=== PATIENT | female | born 1985 | race Caucasian/White ===

== ENCOUNTER 2016-11-22 11:33 | Emergency (ER) | payer BC ==
[2016-11-22 12:05] VITALS: BP 118/71
[2016-11-22] MEDS ORDERED: NAPROXEN 500 MG TABLET PO ONE (12:45)
[2016-11-22 13:13] LABS: BASO # 0.1 x10^3/uL (0.0-0.2); BASO % 1 % (0-3); EOS % 6 % (0-3); HEMATOCRIT 43.1 % (36.0-47.0); HEMOGLOBIN 14.7 g/dL (12.0-15.5); LYMPH # 2.9 x10^3/uL (1.0-4.8); LYMPH % 30 % (24-48); MEAN CORPUSCULAR HEMOGLOBIN 32 pg (25-35); MEAN CORPUSCULAR HGB CONC 34 g/dL (31-37); MEAN CORPUSCULAR VOLUME 95 fL (79-100); MONO % 6 % (0-9); NEUT % 58 % (31-73); PLATELET COUNT 269 x10^3/uL (140-400); RED BLOOD COUNT 4.55 x10^6/uL (3.50-5.40); RED CELL DISTRIBUTION WIDTH 13.1 % (11.5-14.5); WHITE BLOOD COUNT 9.6 x10^3/uL (4.0-11.0)
--- NOTE | 2016-11-22 13:15 | ED.ADGEN ---
Past Medical History Past Medical History: No Pertinent History Past Surgical History: Tonsillectomy, Tubal ligation Additional Past Surgical Histo: hernia repair Additional Information: 10/24 ppd Alcohol Use: Occasionally Drug Use: Marijuana Adult General HPI HPI Patient is a 31 year old woman, history of a tubal ligation, who presents to the emergency department with complaint of swelling and pain behind her right ear. Patient states that she first noted "a bump" yesterday, and the morning that was tender to touch, states it did become larger this morning. She denies any fevers, chills, nausea, vomiting, diarrhea, abdominal pain, GI complaints, weakness, numbness, tingling, ear pain, upper respiratory or lower respiratory type symptoms, any dental or jaw pain. No injuries. She is not taking any medication prior to coming to the ED. Daily tobacco use, no drugs or alcohol. No other areas of swelling or other complaints. No recent travel or exposures. Review of Systems Review of Systems Constitutional: Denies fever or chills. [] Eyes: Denies change in visual acuity. [] HENT: Denies nasal congestion or sore throat. [] Respiratory: Denies cough or shortness of breath. [] Cardiovascular: Denies chest pain or edema. [] GI: Denies abdominal pain, nausea, vomiting, bloody stools or diarrhea. [] : Denies dysuria. [] Musculoskeletal: Denies back pain or joint pain. [] "Bump" behind the right ear. Integument: Denies rash. [] Neurologic: Denies headache, focal weakness or sensory changes. [] Endocrine: Denies polyuria or polydipsia. [] Lymphatic: Denies swollen glands. [] Psychiatric: Denies depression or anxiety. [] Current Medications Current Medications Current Medications Medications (Trade) Dose Ordered Sig/Edilson Start Time Stop Time Status Last Admin Dose Admin Naproxen (Naprosyn) 500 mg 1X ONCE 11/22/16 12:45 11/22/16 12:47 DC 11/22/16 13:02 500 MG Allergies Allergies Allergies Coded Allergies Type Severity Reaction Last Updated Verified No Known Drug Allergies 04/06/16 No Physical Exam Physical Exam Constitutional: Well developed, well nourished, no acute distress, non-toxic appearance. [] HENT: Normocephalic, atraumatic, bilateral external ears normal, oropharynx moist, no oral exudates, nose normal. Patient with a 1.5 cm, minimally mobile palpable lymph node posterior to the right ear. No surrounding areas of irritation, infection, no pain with movement of tragus, no mastoid tenderness, internal ear canal is normal, no evidence of dental abnormalities, no sinus tenderness, or other source of infections or abnormalities identified during examination of the patient's ENT. Eyes: PERRLA, EOMI, conjunctiva normal, no discharge. [] Neck: Normal range of motion, no tenderness, supple, no stridor. [] Cardiovascular:Heart rate regular rhythm, no murmur [] Lungs & Thorax: Bilateral breath sounds clear to auscultation [] Abdomen: Bowel sounds normal, soft, no tenderness, no masses, no pulsatile masses. [] Skin: Warm, dry, no erythema, no rash. [] Back: No tenderness, no CVA tenderness. [] Extremities: No tenderness, no cyanosis, no clubbing, ROM intact, no edema. [] Neurologic: Alert and oriented X 3, normal motor function, normal sensory function, no focal deficits noted. [] Psychologic: Affect normal, judgement normal, mood normal. [] Current Patient Data Vital Signs Vital Signs Date Time Temp Pulse Resp B/P Pulse Ox O2 Delivery O2 Flow Rate FiO2 11/22/16 12:05 98.0 78 18 97 Room Air 98.0 Lab Values Laboratory Tests Test 11/22/16 13:03 White Blood Count 9.6x10^3/uL (4.0-11.0) Red Blood Count 4.55x10^6/uL (3.50-5.40) Hemoglobin 14.7g/dL (12.0-15.5) Hematocrit 43.1% (36.0-47.0) Mean Corpuscular Volume 95fL (79-100) Mean Corpuscular Hemoglobin 32pg (25-35) Mean Corpuscular Hemoglobin Concent 34g/dL (31-37) Red Cell Distribution Width 13.1% (11.5-14.5) Platelet Count 269x10^3/uL (140-400) Neutrophils (%) (Auto) 58% (31-73) Lymphocytes (%) (Auto) 30% (24-48) Monocytes (%) (Auto) 6% (0-9) Eosinophils (%) (Auto) 6% (0-3) H Basophils (%) (Auto) 1% (0-3) Neutrophils # (Auto) 5.6x10^3uL (1.8-7.7) Lymphocytes # (Auto) 2.9x10^3/uL (1.0-4.8) Monocytes # (Auto) 0.6x10^3/uL (0.0-1.1) Eosinophils # (Auto) 0.5x10^3/uL (0.0-0.7) Basophils # (Auto) 0.1x10^3/uL (0.0-0.2) Sodium Level 140mmol/L (136-145) Potassium Level 4.3mmol/L (3.5-5.1) Chloride Level 107mmol/L (98-107) Carbon Dioxide Level 26mmol/L (21-32) Anion Gap 7 (6-14) Blood Urea Nitrogen 11mg/dL (7-20) Creatinine 0.8mg/dL (0.6-1.0) Estimated GFR (Cockcroft-Gault) 83.7 BUN/Creatinine Ratio 14 (6-20) Glucose Level 96mg/dL (70-99) Calcium Level 8.7mg/dL (8.5-10.1) Total Bilirubin 0.4mg/dL (0.2-1.0) Aspartate Amino Transferase (AST) 16U/L (15-37) Alanine Aminotransferase (ALT) 23U/L (14-59) Alkaline Phosphatase 79U/L (46-116) Total Protein 7.5g/dL (6.4-8.2) Albumin 3.7g/dL (3.4-5.0) Albumin/Globulin Ratio 1.0 (1.0-1.7) Laboratory Tests 11/22/16 13:03 Laboratory Tests 11/22/16 13:03 EKG EKG Not indicated. [] Radiology/Procedures Radiology/Procedures Not indicated. [] Course & Med Decision Making Course & Med Decision Making Pertinent Labs and Imaging studies reviewed. (See chart for details) Patient with the appearance of a single enlarged minimally mobile postauricular lymph node. No other lymphadenopathy identified, no other signs of infection or potential source identified during examination, patient denies any concerning historical findings aside from tobacco use. I did discuss with patient that this is likely a reactive lymph node could be related to a viral infection, however due to concerns that could be a more insidious cause, including cancer, she is agreeable to receiving basic laboratory studies in the ED, and will follow-up with her primary care provider Dr. Lin promptly for additional evaluation. Patient's A studies not reveal any evidence of acutely concerning findings, patient was discharged home with instructions and plan as stated, along with smoking cessation instructions, to follow-up promptly with her primary care provider for additional evaluation, and to return to the ED for concerning symptoms if new or concerning symptoms as discussed develop. Dragon Disclaimer Dragon Disclaimer This electronic medical record was generated, in whole or in part, using a voice recognition dictation system. Departure Impression: Primary Impression: Enlarged lymph node Disposition: HOME, SELF-CARE Condition: IMPROVED Scripts Naproxen 250 Mg [id number] Mg PO BID PRN PAIN #10 Prov:MAGGIE VELA DO 11/22/16 MAGGIE VELA DO Nov 22, 2016 13:15
[2016-11-22] MEDS ORDERED: NAPR250T2 PO (13:38)
[2016-11-22 14:03] LABS: CALCIUM 8.7 mg/dL (8.5-10.1); CREATININE 0.8 mg/dL (0.6-1.0); GFR 83.7; POTASSIUM 4.3 mmol/L (3.5-5.1)
[2016-11-22 14:09] LABS: ALBUMIN 3.7 g/dL (3.4-5.0); TOTAL BILIRUBIN 0.4 mg/dL (0.2-1.0); TOTAL PROTEIN 7.5 g/dL (6.4-8.2)
== END 2016-11-22 15:13 | disposition home or self-care (01) ==
LOC: ER 11:33
DX: R59.9 Enlarged lymph nodes, unspecified (principal); F12.10 Cannabis abuse, uncomplicated; F17.200 Nicotine dependence, unspecified, uncomplicated
CPT/HCPCS: 36415; 80053; 85027; 99284

== ENCOUNTER 2017-01-27 09:49 | Emergency (ER) | payer SELFPAY ==
[~2017-01-27] VITALS: Ht 149.9 cm; Wt 72.6 kg
[~2017-01-27 09:49] MED LIST: NAPR250T2 PO
--- NOTE | 2017-01-27 10:25 | PHYS DOC ---
Past Medical History Past Medical History: No Pertinent History Past Surgical History: Tonsillectomy, Tubal ligation Additional Past Surgical Histo: hernia repair Alcohol Use: Occasionally Drug Use: Marijuana Adult General Chief Complaint Chief Complaint: PELVIC PAIN HPI HPI Patient is a 31 year old female presents emergency Department complaining of right-sided pelvic pain that is been ongoing for the past 5 days. Patient reports a history of ovarian cyst. Patient reports she had a tubal ligation performed approximately 3 years ago. She states that she's had no complications since that time. Patient denies treatment for STDs or concerns for STDs at this time. She denies antibiotic use over the past 90 days. Patient states that she has been having some dysuria for the past 3-4 days. She denies hematuria. She denies fevers, chills or flank pain. Other than right-sided pelvic pain, she does deny vaginal bleeding or unusual vaginal discharge. She states that she just finished her menstrual cycle 2 days ago. Review of Systems Review of Systems Constitutional: Denies fever or chills [] Eyes: Denies change in visual acuity, redness, or eye pain [] HENT: Denies nasal congestion or sore throat [] Respiratory: Denies cough or shortness of breath [] Cardiovascular: No additional information not addressed in HPI [] GI: Denies abdominal pain, nausea, vomiting, bloody stools or diarrhea [] : Denies dysuria or hematuria [] Musculoskeletal: Denies back pain or joint pain [] Integument: Denies rash or skin lesions [] Neurologic: Denies headache, focal weakness or sensory changes [] Endocrine: Denies polyuria or polydipsia [] Current Medications Current Medications Current Medications Medications (Trade) Dose Ordered Sig/[facility] Start Time Stop Time Status Last Admin Dose Admin Ketorolac Tromethamine (Toradol Im) 60 mg 1X ONCE 01/27/17 10:30 01/27/17 10:31 DC 01/27/17 10:30 60 MG Allergies Allergies Allergies Coded Allergies Type Severity Reaction Last Updated Verified No Known Drug Allergies 01/27/17 No Physical Exam Physical Exam Constitutional: Well developed, well nourished, no acute distress, non-toxic appearance. [] HENT: Normocephalic, atraumatic, bilateral external ears normal, oropharynx moist, no oral exudates, nose normal. [] Eyes: PERRLA, EOMI, conjunctiva normal, no discharge. [] Neck: Normal range of motion, no tenderness, supple, no stridor. [] Cardiovascular:Heart rate regular rhythm, no murmur [] Lungs & Thorax: Bilateral breath sounds clear to auscultation [] Abdomen: Abdomen soft and nondistended. There are normoactive bowel sounds in all 4 quadrants. There is no palpable defect to the abdominal wall or pulsatile masses. There is no tenderness to palpation above the pelvic brim, specifically the right lower quadrant and McBurney's point. There is no rebound or guarding. Pelvic exam was performed with MICHELA Yeager, in the room functioning as grain manager and resident assistant cna: There were no lesions to the external genitalia. There is a scant amount of old blood in the vaginal vault. Cervix is normal in appearance. External os is closed. There is no tissue or debris other than old dried blood in the vaginal vault. There is no cervical motion tenderness. There was no left adnexal tenderness. There was mild uterine and right adnexal tenderness. Patient had no complaints of tenderness to palpation in the right lower quadrant during pelvic exam. Skin: Warm, dry, no erythema, no rash. [] Back: No tenderness, no CVA tenderness. [] Extremities: No tenderness, no cyanosis, no clubbing, ROM intact, no edema. [] Neurologic: Alert and oriented X 3, normal motor function, normal sensory function, no focal deficits noted. [] Psychologic: Affect normal, judgement normal, mood normal. [] Current Patient Data Vital Signs Vital Signs Date Time Temp Pulse Resp B/P Pulse Ox O2 Delivery O2 Flow Rate FiO2 01/27/17 12:16 76 18 111/71 97 Room Air 01/27/17 09:52 97.7 97.7 Lab Values Laboratory Tests Test 01/27/17 10:05 Urine Collection Type Unknown Urine Color Yellow Urine Clarity Clear Urine pH 6.0 Urine Specific [place] 1.015 Urine Protein Negativemg/dL (NEG-TRACE) Urine Glucose (UA) Negativemg/dL (NEG) Urine Ketones (Stick) Negativemg/dL (NEG) Urine Blood Small (NEG) Urine Nitrite Negative (NEG) Urine Bilirubin Negative (NEG) Urine Urobilinogen Dipstick 0.2mg/dL (0.2 mg/dL) Urine Leukocyte Esterase Large (NEG) Urine RBC 1-2/HPF (0-2) Urine WBC 5-10/HPF (0-4) Urine Squamous Epithelial Cells Few/LPF Urine Bacteria 0/HPF (0-FEW) Microbiology 01/27/17 Wet Prep - Final, Complete Microbiology 01/27/17 Wet Prep - Final, Complete EKG EKG [] Radiology/Procedures Radiology/Procedures [facility] [address] [place] [address] IMAGING REPORT Signed PATIENT: JENISE RIVERA ACCOUNT: [id number] : 1985 LOCATION: ER AGE: 31 SEX: F EXAM STATUS: REG ER ORD. PHYSICIAN: VIRGINIA LINO REASON: RIGHT adnexal tenderness PROCEDURE: PELVIS COMPLETE Transabdominal and endovaginal pelvic ultrasound History: Right adnexal tenderness. Comparison: None. Technique: Transabdominal imaging was performed to evaluate optimally the uterine fundus. Endovaginal imaging was performed to evaluate optimally the endometrial stripe and lower uterine segment. Findings: Transabdominal imaging: The uterus measures 9.7 cm in length. Uterus has an unremarkable appearance. The endometrial stripe measures 5 mm, within normal limits. Right ovary measures 3.4 x 2.2 x 3.1 cm and is unremarkable. Left ovary measures 2.8 x 2.0 x 2.2 cm and is unremarkable. No adnexal masses are seen. Both ovaries demonstrate normal vascular flow upon Doppler interrogation and are without evidence of torsion. Endovaginal imaging: The uterus measures 10.1 cm in length. Uterus has an unremarkable appearance. The endometrial stripe measures 9 mm, within normal limits. Right ovary measures 2.8 x 2.2 x 2.8 cm and demonstrates a few small follicles. Left ovary is not visualized with endovaginal imaging. Right ovary demonstrates normal vascular flow upon Doppler interrogation and is without evidence of torsion. Impression: 1. Unremarkable pelvic ultrasound. Course & Med Decision Making Course & Med Decision Making Patient states that she's been taking another person's hydrocodone to help the pain. She freely admits to THC use as well. test is reported to me as negative. 60 mg of Toradol IM has been ordered. 1150: Patient's abdomen was reexamined by me. She continues to have no tenderness to palpation above the pelvic brim. She has no pain at McBurney's point, no periumbilical pain or right upper quadrant. Patient states she otherwise feels comfortable at this time. Dragon Disclaimer Dragon Disclaimer This electronic medical record was generated, in whole or in part, using a voice recognition dictation system. Departure Departure Impression: Primary Impression: UTI (urinary tract infection) Additional Impression: Pelvic pain Disposition: HOME, SELF-CARE Condition: GOOD Referrals: DAWSON MARTIN MD (PCP) Patient Instructions: Pelvic Pain, Female, [id number], Urinary Tract Infection, [id number] Additional Instructions: 1. Review the discharge instructions provided for self-care and reasons to return to the emergency department. Have low tolerance for increased pain in the right pelvic area, specifically begins to migrate upward into the abdomen. 2. Take the medication as prescribed. 3. Follow-up with your primary care doctor next week for reevaluation. Scripts Oxycodone/Apap 5-325 (Percocet 5-325 Mg Tablet)1 Each Tablet1 Tab PO PRN Q6HRS PRN PAIN #10 TAB Ref 0 Prov:VIRGINIA LINO 01/27/17 Phenazopyridine Hcl (Pyridium)200 Mg [id number] Mg PO TID #6 TAB Prov:VIRGINIA LINO 01/27/17 Sulfamethoxazole/Trimethoprim (Bactrim 400-80 Mg Tablet)1 Each Tablet1 Each PO BID #10 Prov:VIRGINIA LINO 01/27/17 Problem Qualifiers VIRGINIA LINO Jan 27, 2017 10:24
[2017-01-27 10:27] LABS: BILIRUBIN,URINE NEGATIVE (NEG); GLUCOSE,URINE NEGATIVE (NEG); NITRITE,URINE NEGATIVE (NEG); PROTEIN,URINE NEGATIVE (NEG-TRACE); UROBILINOGEN,URINE 0.2 mg/dL (0.2 mg/dL)
[2017-01-27] MEDS ORDERED: KETOROLAC TROMETHAMINE 60 MG/2 ML INJ. IM ONE (10:30)
[2017-01-27 10:40] LABS: BACTERIA,URINE 0 /HPF (0-FEW); SQUAMOUS EPITHELIAL CELL,UR FEW /LPF
--- NOTE | 2017-01-27 11:38 | RAD ---
Transabdominal and endovaginal pelvic ultrasound History: Right adnexal tenderness. Comparison: None. Technique: Transabdominal imaging was performed to evaluate optimally the uterine fundus. Endovaginal imaging was performed to evaluate optimally the endometrial stripe and lower uterine segment. Findings: Transabdominal imaging: The uterus measures 9.7 cm in length. Uterus has an unremarkable appearance. The endometrial stripe measures 5 mm, within normal limits. Right ovary measures 3.4 x 2.2 x 3.1 cm and is unremarkable. Left ovary measures 2.8 x 2.0 x 2.2 cm and is unremarkable. No adnexal masses are seen. Both ovaries demonstrate normal vascular flow upon Doppler interrogation and are without evidence of torsion. Endovaginal imaging: The uterus measures 10.1 cm in length. Uterus has an unremarkable appearance. The endometrial stripe measures 9 mm, within normal limits. Right ovary measures 2.8 x 2.2 x 2.8 cm and demonstrates a few small follicles. Left ovary is not visualized with endovaginal imaging. Right ovary demonstrates normal vascular flow upon Doppler interrogation and is without evidence of torsion. Impression: 1. Unremarkable pelvic ultrasound.
[2017-01-27] MEDS ORDERED: OXYC-323 PO (12:08)
[2017-01-27] MEDS ORDERED: PHEN-318 PO (12:08)
[2017-01-27] MEDS ORDERED: SULF1TAB23 PO (12:08)
[2017-01-27 12:16] VITALS: BP 111/71
== END 2017-01-27 12:21 | disposition home or self-care (01) ==
LOC: ER 09:49
DX: N39.0 Urinary tract infection, site not specified (principal); N83.209 Unspecified ovarian cyst, unspecified side; F12.10 Cannabis abuse, uncomplicated; Z98.51 Tubal ligation status
CPT/HCPCS: 76856; 81001; 87086; 96372; 99285; J1885; Q0111; 81025

== ENCOUNTER 2018-01-04 11:10 | Emergency (ER) | payer SELFPAY ==
[2018-01-04 11:28] LABS: URINE HCG POC HCG NEGATIVE (Negative)
[2018-01-04 11:37] LABS: POC GLUCOSE 122 mg/dL (70-99)
[2018-01-04 12:09] LABS: BILIRUBIN,URINE NEGATIVE (NEG); CLARITY,URINE CLEAR; COLOR,URINE YELLOW; GLUCOSE,URINE NEGATIVE (NEG); NITRITE,URINE NEGATIVE (NEG); PH,URINE 5.5; PROTEIN,URINE NEGATIVE (NEG-TRACE); UROBILINOGEN,URINE 0.2 mg/dL (0.2 mg/dL)
[2018-01-04] MEDS: IV NORMAL SALINE 1000ML BAG 1,000 ML IV (12:25)
[2018-01-04 12:29] LABS: ADD MAN DIFF? NO
[2018-01-04 12:32] LABS: BASO % 1 % (0-3); EOS # 0.3 x10^3/uL (0.0-0.7); EOS % 3 % (0-3); HEMATOCRIT 40.8 % (36.0-47.0); HEMOGLOBIN 14.1 g/dL (12.0-15.5); LYMPH # 1.7 x10^3/uL (1.0-4.8); LYMPH % 19 % (24-48); MEAN CORPUSCULAR HEMOGLOBIN 33 pg (25-35); MEAN CORPUSCULAR HGB CONC 35 g/dL (31-37); MEAN CORPUSCULAR VOLUME 96 fL (79-100); MONO # 0.5 x10^3/uL (0.0-1.1); MONO % 6 % (0-9); NEUT # 6.5 x10^3uL (1.8-7.7); NEUT % 72 % (31-73); PLATELET COUNT 249 x10^3/uL (140-400); RED BLOOD COUNT 4.24 x10^6/uL (3.50-5.40); RED CELL DISTRIBUTION WIDTH 13.1 % (11.5-14.5)
[2018-01-04 12:37] LABS: AMORPHOUS SEDIMENT,UR PRESENT /HPF; BACTERIA,URINE 0 /HPF (0-FEW); RBC,URINE 0 /HPF (0-2); SQUAMOUS EPITHELIAL CELL,UR MOD /LPF
[2018-01-04] MEDS: IBUPROFEN 600 MG TABLET. PO (12:40)
[2018-01-04 12:43] LABS: ANION GAP 4 (6-14); BLOOD UREA NITROGEN 12 mg/dL (7-20); BUN/CREATININE RATIO 15 (6-20); CALCIUM 8.7 mg/dL (8.5-10.1); CARBON DIOXIDE 26 mmol/L (21-32); CHLORIDE 106 mmol/L (98-107); CREATININE 0.8 mg/dL (0.6-1.0); GFR 83.1; GLUCOSE 92 mg/dL (70-99); SODIUM 136 mmol/L (136-145)
[2018-01-04 12:49] LABS: ALBUMIN 3.3 g/dL (3.4-5.0); ALBUMIN/GLOBULIN RATIO 0.9 (1.0-1.7); ALK PHOS 74 U/L (46-116); ALT (SGPT) 28 U/L (14-59); AST (SGOT) 16 U/L (15-37)
[2018-01-04 12:52] LABS: TROPONINI < 0.017 ng/mL (0.000-0.055)
[2018-01-04 12:54] LABS: NT-PRO BNP 91 pg/mL (0-124)
[2018-01-04 13:03] LABS: TOTAL BILIRUBIN < 0.1 mg/dL (0.2-1.0)
== END 2018-01-04 13:57 | disposition home or self-care (01) ==
LOC: ER 11:10
DX: R55 Syncope and collapse (principal); R09.81 Nasal congestion; R05 Cough; J34.89 Other specified disorders of nose and nasal sinuses; F12.10 Cannabis abuse, uncomplicated; E66.9 Obesity, unspecified; Z68.35 Body mass index [BMI] 35.0-35.9, adult
CPT/HCPCS: 36415; 80053; 81001; 81025; 82962; 83880; 84484; 85025; 87086; 93005; 96360; 99285-25; J7030

== ENCOUNTER 2018-05-20 13:59 | Emergency (ER) | payer SELFPAY ==
[2018-05-20 14:36] LABS: BILIRUBIN,URINE NEGATIVE (NEG); COLOR,URINE YELLOW; GLUCOSE,URINE NEGATIVE (NEG); NITRITE,URINE NEGATIVE (NEG); PROTEIN,URINE NEGATIVE (NEG-TRACE); UROBILINOGEN,URINE 0.2 mg/dL (0.2 mg/dL)
[2018-05-20 14:40] LABS: CLARITY,URINE HAZY
[2018-05-20 14:45] LABS: BACTERIA,URINE MODERATE /HPF (0-FEW); RBC,URINE OCC /HPF (0-2); SQUAMOUS EPITHELIAL CELL,UR MANY /LPF; TRICHOMONAS,URINE PRESENT
[2018-05-20] MEDS: AZITHROMYCIN 250 MG TABLET. PO (15:40)
[2018-05-20] MEDS: cefTRIAXone IM 250 MG VIAL IM (15:47)
[2018-05-22 14:33] LABS: CHLAMYDIA PROBE Negative (Negative); GC PROBE Negative (Negative)
== END 2018-05-20 16:04 | disposition home or self-care (01) ==
LOC: ER 16:04
DX: N39.0 Urinary tract infection, site not specified (principal); A59.01 Trichomonal vulvovaginitis; N76.0 Acute vaginitis; B96.89 Other specified bacterial agents as the cause of diseases classified elsewhere; Z90.89 Acquired absence of other organs; Z98.51 Tubal ligation status
CPT/HCPCS: 81001; 87086; 87491; 87591; 96372; 99284; J0696; Q0111; Q0144

== ENCOUNTER 2018-08-22 15:02 | Emergency (ER) | payer SELFPAY ==
[~2018-08-22] VITALS: Ht 149.9 cm; Wt 68.0 kg
[~2018-08-22 15:02] MED LIST changes: +CIPR500T PO; +METR500T PO; -NAPR250T2 PO; +NAPR250T6 PO; +OXYC-323 PO; +PHEN-318 PO; +SULF1TAB23 PO
[2018-08-22 15:12] VITALS: BP 155/92
[2018-08-22] MEDS ORDERED: AMOX875T PO (15:47)
[2018-08-22] MEDS ORDERED: OFLO5DRO7 EACH EAR (15:47)
[2018-08-22] MEDS ORDERED: TRAM50TA PO (15:47)
--- NOTE | 2018-08-22 15:47 | PHYS DOC ---
Past Medical History Past Medical History: No Pertinent History Past Surgical History: Tonsillectomy, Tubal ligation Additional Past Surgical Histo: hernia repair Alcohol Use: Occasionally Drug Use: Marijuana Adult General Chief Complaint Chief Complaint: FACE PAIN [facility] HPI Patient is a 33 year old female with no significant medical history who presents today complaining of 10 out of 10 left facial pain that has been going on for one week. Patient states the pain radiates from the left tooth into the left ear and worse in the left ear. Patient denies any hearing loss. She states she has a bad tooth but does not have a dentist. She states she does not have dental insurance to see a dentist. Denies any fever or trismus. Review of Systems Review of Systems Constitutional: Denies fever or chills [] Eyes: Denies change in visual acuity, redness, or eye pain [] HENT: Reports left-sided facial pain. Denies nasal congestion or sore throat [] Respiratory: Denies cough or shortness of breath [] Cardiovascular: No additional information not addressed in HPI [] GI: Denies abdominal pain, nausea, vomiting, bloody stools or diarrhea [] : Denies dysuria or hematuria [] Musculoskeletal: Denies back pain or joint pain [] Integument: Denies rash or skin lesions [] Neurologic: Denies headache, focal weakness or sensory changes [] All other systems were reviewed and found to be within normal limits, except as documented in this note. Allergies Allergies Allergies Coded Allergies Type Severity Reaction Last Updated Verified No Known Drug Allergies 01/27/17 No Physical Exam Physical Exam Constitutional: Well developed, well nourished, no acute distress, non-toxic appearance. [] HENT: Normocephalic, atraumatic, bilateral external ears normal, oropharynx moist, no oral exudates, nose normal. [] Unable to visualize the left TM, there is slight swelling on the left ear canal. No drainage. Tragus is painful. Right TM is normal. Tooth #20 is broken and has decay. Eyes: PERRLA, EOMI, conjunctiva normal, no discharge. [] Neck: Normal range of motion, no tenderness, supple, no stridor. [] Cardiovascular:Heart rate regular rhythm, no murmur [] Lungs & Thorax: Bilateral breath sounds clear to auscultation [] Abdomen: Bowel sounds normal, soft, no tenderness, no masses, no pulsatile masses. [] Skin: Warm, dry, no erythema, no rash. [] Back: No tenderness, no CVA tenderness. [] Extremities: No tenderness, no cyanosis, no clubbing, ROM intact, no edema. [] Neurologic: Alert and oriented X 3, normal motor function, normal sensory function, no focal deficits noted. [] Psychologic: Affect normal, judgement normal, mood normal. [] Current Patient Data Vital Signs Vital Signs Date Time Temp Pulse Resp B/P (MAP) Pulse Ox O2 Delivery O2 Flow Rate FiO2 08/22/18 15:12 97.4 93 16 155/92 (113) 99 Room Air 97.4 EKG EKG [] Radiology/Procedures Radiology/Procedures [] Course & Med Decision Making Course & Med Decision Making Pertinent Labs and Imaging studies reviewed. (See chart for details) Patient is in the ED with left-sided facial pain for one week. Left ear canal is swollen suspicious of otitis externa, she also has a decayed tooth. We'll discharge patient on amoxicillin and oflaxacin. Follow-up with a dentist as well as PCP in 1-2 weeks. Dragon Disclaimer Dragon Disclaimer This electronic medical record was generated, in whole or in part, using a voice recognition dictation system. Departure Departure Impression: Primary Impression: Dentalgia Additional Impressions: Otitis externa Dental caries Disposition: 01 HOME, SELF-CARE Condition: STABLE Referrals: NO PCP (PCP) follow up with your dentist as well as primary care doctor as soon as you can Patient Instructions: Dental Caries, Dental Pain, Otitis Externa, [id number] Additional Instructions: You were evaluated in the emergency room for ear infection and dental infection that are causing you left-sided facial pain. We put you on antibiotics and eardrops as well as pain medicines, take them as prescribed. Follow-up with her dentist as well as your primary care doctor as soon as you can. Scripts Tramadol Hcl (TRAMADOL HCL) 50 Mg Tablet 50 MG PO Q6HRS PRN for PAIN, #30 TAB Prov: MUTUNGAFRANTZ PROGRAMMING SPECIALIST 08/22/18 Ofloxacin (OFLOXACIN) 5 Ml Drops 5 DROP EACH EAR BID, #5 ML Prov: NIKOLAIAFRANTZ PROGRAMMING SPECIALIST 08/22/18 Amoxicillin (AMOXICILLIN) 875 Mg Tablet 1 TAB PO BID, #20 TAB Prov: FRANTZ VEGA PROGRAMMING SPECIALIST 08/22/18 Problem Qualifiers Additional Impressions: Otitis externa Otitis externa type: other infective Chronicity: acute Laterality: left Qualified Codes: H60.392 - Other infective otitis externa, left ear FRANTZ VEGA PROGRAMMING SPECIALIST Aug 22, 2018 15:47
== END 2018-08-22 15:53 | disposition home or self-care (01) ==
LOC: ER 15:02
DX: H60.392 Other infective otitis externa, left ear (principal); K02.9 Dental caries, unspecified; R51 Headache; Z90.89 Acquired absence of other organs; Z98.51 Tubal ligation status
CPT/HCPCS: 99283

== ENCOUNTER 2018-12-11 12:13 | Emergency (ER) | payer BC ==
[~2018-12-11] VITALS: Ht 149.9 cm; Wt 88.5 kg
[~2018-12-11 12:13] MED LIST changes: +AMOX875T PO; +OFLO5DRO7 EACH EAR; -OXYC-323 PO; +OXYC1TAB15 PO; +TRAM50TA PO
[2018-12-11 12:44] LABS: BASO # 0.1 x10^3/uL (0.0-0.2); BASO % 1 % (0-3); EOS # 0.4 x10^3/uL (0.0-0.7); EOS % 5 % (0-3); HEMATOCRIT 44.4 % (36.0-47.0); HEMOGLOBIN 15.2 g/dL (12.0-15.5); LYMPH # 3.1 x10^3/uL (1.0-4.8); LYMPH % 34 % (24-48); MEAN CORPUSCULAR HEMOGLOBIN 33 pg (25-35); MEAN CORPUSCULAR HGB CONC 34 g/dL (31-37); MEAN CORPUSCULAR VOLUME 96 fL (79-100); MONO # 0.5 x10^3/uL (0.0-1.1); MONO % 6 % (0-9); NEUT # 5.1 x10^3uL (1.8-7.7); NEUT % 55 % (31-73); PLATELET COUNT 304 x10^3/uL (140-400); RED BLOOD COUNT 4.64 x10^6/uL (3.50-5.40); RED CELL DISTRIBUTION WIDTH 12.7 % (11.5-14.5); WHITE BLOOD COUNT 9.2 x10^3/uL (4.0-11.0)
[2018-12-11] MEDS ORDERED: MECLIZINE HCL 12.5 MG TABLET. PO ONE (12:45)
[2018-12-11] MEDS ORDERED: ONDANSETRON PF 4 MG/2 ML VIAL. IV ONE (12:45)
[2018-12-11] MEDS ORDERED: methylPREDNISolone SOD SUCC PF 125 MG/2 ML VIAL. IV ONE (12:45)
[2018-12-11] MEDS ORDERED: KETOROLAC 30 MG/ML VIAL. IV ONE (12:45)
[2018-12-11] MEDS ORDERED: IV NORMAL SALINE 1000ML BAG 1,000 ML IV ONE (12:45)
--- NOTE | 2018-12-11 12:45 | EKG ---
[facility] [address] [place] [address] Test Date: 2018-12-11 Test Time: 12:25:30 Pat Name: JENISE RIVERA Department: Room: Gender: F Safety And Security Officer: : 1985 Requested By: FRANTZ VEGA Order Number: [id number] Reading MD: Aries Raygoza Measurements Intervals [place] Rate: 77 P: 0 DE: 142 QRS: 47 QRSD: 74 T: 25 QT: 352 QTc: 400 Interpretive Statements SINUS RHYTHM NO SPECIFIC ECG ABNORMALITIES Electronically Signed On 12-12-2018 9:12:40 STUDY COORDINATOR by Aries Raygoza
[2018-12-11 12:52] LABS: BARBITURATES NEG (NEG); BENZODIAZEPINES NEG (NEG); CANNABINOIDS POS (NEG); COCAINE NEG (NEG); METHADONE NEG (NEG); OPIATES NEG (NEG); PHENCYCLIDINE NEG (NEG)
[2018-12-11 13:00] LABS: AMPHETAMINE/METHAMPHETAMINE NEG (NEG)
[2018-12-11 13:28] LABS: CALCIUM 9.4 mg/dL (8.5-10.1); CREATININE 0.9 mg/dL (0.6-1.0); GFR 72.1; POTASSIUM 4.6 mmol/L (3.5-5.1)
[2018-12-11 13:31] LABS: ALBUMIN 3.6 g/dL (3.4-5.0); MAGNESIUM 1.9 mg/dL (1.8-2.4); TOTAL BILIRUBIN 0.2 mg/dL (0.2-1.0); TOTAL PROTEIN 7.1 g/dL (6.4-8.2)
--- NOTE | 2018-12-11 13:31 | RAD ---
EXAM: AP View of the chest DATE: 12/11/2018 12:57 PM INDICATION: DIZZINESS COMPARISON: 04/06/2016 acute abdominal series FINDINGS: The heart is not enlarged. Mediastinal and hilar contours are normal. No focal parenchymal airspace opacity. No pleural effusion or pneumothorax. IMPRESSION: 1. No radiographic evidence for acute cardiopulmonary process. Electronically signed by: Rodo Valiente MD (12/11/2018 1:28 PM) [id number]
[2018-12-11 14:00] VITALS: BP 134/84
--- NOTE | 2018-12-11 14:45 | PHYS DOC ---
Past Medical History Past Medical History: Migraines Past Surgical History: Tonsillectomy, Tubal ligation Additional Past Surgical Histo: hernia repair Alcohol Use: Occasionally Drug Use: Marijuana Adult General Chief Complaint Chief Complaint: DIZZY/LIGHT HEADED HPI HPI Patient is a 33 year old female with history of migraine headaches, who presents to the ED today complaining of dizziness, mild frontal migraine headache, nausea, symptoms began yesterday. Patient denies any vomiting. Denies any chance she is . She states the current migraine headache is consistent with her normal migraines. Patient denies anything exacerbating or making the pain better. She states occasionally she feels like the room is spinning. She is sitting up in her bed in no distress. Review of Systems Review of Systems Constitutional: Denies fever or chills [] Eyes: Denies change in visual acuity, redness, or eye pain [] HENT: Denies nasal congestion or sore throat [] Respiratory: Denies cough or shortness of breath [] Cardiovascular: No additional information not addressed in HPI [] GI: Reports nausea. Denies abdominal pain, vomiting, bloody stools or diarrhea [ ] : Denies dysuria or hematuria [] Musculoskeletal: Denies back pain or joint pain [] Integument: Denies rash or skin lesions [] Neurologic: Reports headache and dizziness, denies focal weakness or sensory changes [] All other systems were reviewed and found to be within normal limits, except as documented in this note. Current Medications Current Medications Current Medications Medications (Trade) Dose Ordered Sig/Edilson Start Time Stop Time Status Last Admin Dose Admin Ketorolac Tromethamine (Toradol 30mg Vial) 30 mg 1X ONCE 12/11/18 12:45 12/11/18 12:46 DC 12/11/18 12:56 30 MG Meclizine HCl (Antivert) 25 mg 1X ONCE 12/11/18 12:45 12/11/18 12:46 DC 12/11/18 12:56 25 MG Methylprednisolone Sodium Succinate (SOLU-Medrol 125MG VIAL) 125 mg 1X ONCE 12/11/18 12:45 12/11/18 12:46 DC 12/11/18 12:56 125 MG Ondansetron HCl (Zofran) 4 mg 1X ONCE 12/11/18 12:45 12/11/18 12:46 DC 12/11/18 12:56 4 MG Sodium Chloride 1,000 ml @ 1,000 mls/hr 1X ONCE 12/11/18 12:45 12/11/18 13:44 DC 12/11/18 12:55 1,000 MLS/HR Allergies Allergies Allergies Coded Allergies Type Severity Reaction Last Updated Verified No Known Drug Allergies 01/27/17 No Physical Exam Physical Exam Constitutional: Well developed, well nourished, no acute distress, non-toxic appearance. [] HENT: Normocephalic, atraumatic, bilateral external ears normal, oropharynx moist, no oral exudates, nose normal. [] Eyes: PERRLA, EOMI, conjunctiva normal, no discharge. [] Neck: Normal range of motion, no tenderness, supple, no stridor. [] Cardiovascular:Heart rate regular rhythm, no murmur [] Lungs & Thorax: Bilateral breath sounds clear to auscultation [] Abdomen: Bowel sounds normal, soft, no tenderness, no masses, no pulsatile masses. [] Skin: Warm, dry, no erythema, no rash. [] Back: No tenderness, no CVA tenderness. [] Extremities: No tenderness, no cyanosis, no clubbing, ROM intact, no edema. [] Neurologic: Alert and oriented X 3, normal motor function, normal sensory function, no focal deficits noted, cranial nerves II through XII intact Psychologic: Affect normal, judgement normal, mood normal. [] Current Patient Data Vital Signs Vital Signs Date Time Temp Pulse Resp B/P (MAP) Pulse Ox O2 Delivery O2 Flow Rate FiO2 12/11/18 12:43 97.6 86 20 165/86 (112) 98 Room Air 97.6 Lab Values Laboratory Tests Test 12/11/18 12:20 12/11/18 12:28 12/11/18 13:05 White Blood Count 9.2 x10^3/uL (4.0-11.0) Red Blood Count 4.64 x10^6/uL (3.50-5.40) Hemoglobin 15.2 g/dL (12.0-15.5) Hematocrit 44.4 % (36.0-47.0) Mean Corpuscular Volume 96 fL (79-100) Mean Corpuscular Hemoglobin 33 pg (25-35) Mean Corpuscular Hemoglobin Concent 34 g/dL (31-37) Red Cell Distribution Width 12.7 % (11.5-14.5) Platelet Count 304 x10^3/uL (140-400) Neutrophils (%) (Auto) 55 % (31-73) Lymphocytes (%) (Auto) 34 % (24-48) Monocytes (%) (Auto) 6 % (0-9) Eosinophils (%) (Auto) 5 % (0-3) H Basophils (%) (Auto) 1 % (0-3) Neutrophils # (Auto) 5.1 x10^3uL (1.8-7.7) Lymphocytes # (Auto) 3.1 x10^3/uL (1.0-4.8) Monocytes # (Auto) 0.5 x10^3/uL (0.0-1.1) Eosinophils # (Auto) 0.4 x10^3/uL (0.0-0.7) Basophils # (Auto) 0.1 x10^3/uL (0.0-0.2) Urine Opiates Screen Neg (NEG) Urine Methadone Screen Neg (NEG) Urine Barbiturates Neg (NEG) Urine Phencyclidine Screen Neg (NEG) Urine Amphetamine/Methamphetamine Neg (NEG) Urine Benzodiazepines Screen Neg (NEG) Urine Cocaine Screen Neg (NEG) Urine Cannabinoids Screen Pos (NEG) Urine Ethyl Alcohol Neg (NEG) Sodium Level 138 mmol/L (136-145) Potassium Level 4.6 mmol/L (3.5-5.1) Chloride Level 101 mmol/L (98-107) Carbon Dioxide Level 26 mmol/L (21-32) Anion Gap 11 (6-14) Blood Urea Nitrogen 15 mg/dL (7-20) Creatinine 0.9 mg/dL (0.6-1.0) Estimated GFR (Cockcroft-Gault) 72.1 BUN/Creatinine Ratio 17 (6-20) Glucose Level 99 mg/dL (70-99) Calcium Level 9.4 mg/dL (8.5-10.1) Magnesium Level 1.9 mg/dL (1.8-2.4) Total Bilirubin 0.2 mg/dL (0.2-1.0) Aspartate Amino Transferase (AST) 16 U/L (15-37) Alanine Aminotransferase (ALT) 31 U/L (14-59) Alkaline Phosphatase 70 U/L (46-116) Creatine Kinase 96 U/L (26-192) Creatine Kinase MB (Mass) 0.6 ng/mL (0.0-3.6) Creatine Kinase MB Relative Index 0.6 % (0-4) Total Protein 7.1 g/dL (6.4-8.2) Albumin 3.6 g/dL (3.4-5.0) Albumin/Globulin Ratio 1.0 (1.0-1.7) Lipase 143 U/L (73-393) Thyroid Stimulating Hormone (TSH) 1.308 uIU/mL (0.358-3.74) Laboratory Tests 12/11/18 12:20 Laboratory Tests 12/11/18 13:05 EKG EKG Interpreted by Dr. Marx sinus rhythm HR 77 no STEMI[] Radiology/Procedures Radiology/Procedures [] Course & Med Decision Making Course & Med Decision Making Pertinent Labs and Imaging studies reviewed. (See chart for details) This is a 33-year-old female patient presenting to the ED today with a migraine headache, dizziness, nausea, symptoms began yesterday. Patient is in no distress. Orthostatics on arrival to the ED laying 159/77 heart rate 81, sating 144/71 heart rate 89, standing 139/66 heart rate 95. Labs are negative for any acute findings. Patient was given IV fluids, nausea medicine, meclizine, I personally went to evaluate patient. She is sitting up in her bed playing on her phone laughing in no distress she states she feels better. She was discharged to home. Instructed to follow-up with her own PCP in the next 1-2 weeks or the provided urologist. Dragon Disclaimer Dragon Disclaimer This electronic medical record was generated, in whole or in part, using a voice recognition dictation system. Departure Departure Impression: Primary Impression: Vertigo Additional Impression: Migraine headache Disposition: HOME, SELF-CARE Condition: STABLE Referrals: NO PCP (PCP) PENELOPE TAYLOR MD Follow-up in one week Patient Instructions: Migraine Headache, Vertigo, [id number] Additional Instructions: You were evaluated in the emergency room for vertigo and migraine headache. Take the prescribed medications as ordered. Follow-up with your doctor in 1-2 weeks. Change positions slowly, push fluids. Follow up with your doctor next week. Scripts Ondansetron Hcl (ZOFRAN) 4 Mg Tablet 1 TAB PO Q6HRS, #20 TAB Prov: FRANTZ VEGA APRN 12/11/18 Meclizine Hcl (MECLIZINE HCL) 25 Mg Tablet 1 TAB PO TID, #30 TAB Prov: FRANTZ VEGA APRN 12/11/18 Problem Qualifiers Additional Impression: Migraine headache Migraine type: unspecified Status migrainosus presence: without status migrainosus Intractability: not intractable Qualified Codes: G43.909 - Migraine, unspecified, not intractable, without status migrainosus FRANTZ VEGA APRN Dec 11, 2018 14:45
[2018-12-11] MEDS ORDERED: ONDA4TAB7 PO (14:53)
[2018-12-11] MEDS ORDERED: MECL25TA3 PO (14:53)
== END 2018-12-11 15:15 | disposition home or self-care (01) ==
LOC: ER 12:13
DX: G43.909 Migraine, unspecified, not intractable, without status migrainosus (principal); R42 Dizziness and giddiness; Z90.89 Acquired absence of other organs; Z98.51 Tubal ligation status
CPT/HCPCS: 36415; 71045; 80053; 80307; 82553; 83690; 83735; 84443; 84484; 85025; 93005; 96361; 96374; 96375; 99284; J1885; J2405; J2930; J7030; J8597

== ENCOUNTER 2019-02-22 09:46 | Emergency (ER) | payer BC ==
[~2019-02-22] VITALS: Ht 152.4 cm; Wt 101.6 kg
[~2019-02-22 09:46] MED LIST changes: +MECL25TA3 PO; +ONDA4TAB7 PO
[2019-02-22 09:47] VITALS: BP 155/94
--- NOTE | 2019-02-22 10:05 | PHYS DOC ---
Past Medical History Past Medical History: Migraines Past Surgical History: Tonsillectomy, Tubal ligation, Other Additional Past Surgical Histo: hernia repair Additional Information: 1 PPD Alcohol Use: Occasionally Drug Use: Marijuana Adult General Chief Complaint Chief Complaint: SORE THROAT HPI HPI 33 y/o female presents to ER via POV for c/o sinus congestion, bilat. ear pressure, nonprod. cough, and sore throat. 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 Patient denies fever, shortness of air, or chest pain. Patient states she did take some Tylenol and has been doing DayQuil. Patient denies difficulty swallowing. Patient states she typically takes Claritin but hasn't been taking for several weeks. Patient is a daily smoker. Patient denies any urinary symptoms. She denies any recent travel. Review of Systems Review of Systems Constitutional: Denies fever or chills [] Eyes: Denies change in visual acuity, redness, or eye pain [] HENT: Reports sinus congestion/pressure with sore throat. Reports bilat. ear pressure. Denies difficulty swallowing Respiratory: Denies shortness of breath. Reports nonprod. cough Cardiovascular: No additional information not addressed in HPI [] GI: Denies abdominal pain, nausea, vomiting, bloody stools or diarrhea [] : Denies urinary sxs Musculoskeletal: Denies back/neck pain or joint pain [] Integument: Denies rash or skin lesions [] Neurologic: Denies headache, focal weakness or sensory changes. Denies dizzines All other systems were reviewed and found to be within normal limits, except as documented in this note. Allergies Allergies Allergies Coded Allergies Type Severity Reaction Last Updated Verified No Known Drug Allergies 01/27/17 No Physical Exam Physical Exam Constitutional: Well developed, well nourished, no acute distress, non-toxic appearance. [] HENT: Normocephalic, atraumatic, bilateral ears normal, oropharynx moist- no pharyngeal swelling/erythema, no oral exudates, nose normal. No facial swelling. Maxillary/frontal sinus tenderness Eyes: Pupils equal, conjunctiva normal, no discharge. [] Neck: Normal range of motion, no tenderness, supple, no stridor/gross adenopathy Cardiovascular: Heart rate regular rhythm, no murmur [] Lungs & Thorax: Bilateral breath sounds clear to auscultation- resp. equal/nonlabored Abdomen: Bowel sounds normal, soft, no tenderness Skin: Warm, dry, no erythema, no rash. [] Back: No tenderness, no CVA tenderness. [] Extremities: No tenderness, no cyanosis, no clubbing, ROM intact, no edema. [] Neurologic: Alert and oriented X 3, normal motor function, normal sensory function, no focal deficits noted. [] Psychologic: Affect normal, judgement normal, mood normal. [] Current Patient Data Vital Signs Vital Signs Date Time Temp Pulse Resp B/P (MAP) Pulse Ox O2 Delivery O2 Flow Rate FiO2 02/22/19 09:47 98.2 99 16 155/94 (114) 99 Room Air 98.2 EKG EKG [] Radiology/Procedures Radiology/Procedures [] Course & Med Decision Making Course & Med Decision Making Pt was evaluated in the ER for complaints of sinus congestion and sore throat. She reported she had not been taking her daily Claritin as she keeps forgetting. Patient had no pharyngeal erythema or swelling and lungs were clear bilateral. Patient was afebrile. Discussed probable seasonal allergies with sinus congestion. Discussed starting her daily Claritin again as well as discussion on [id number] options such as nasal sprays as directed on container. Patient encouraged to increase fluid intake daily. Smoking cessation was discussed. Patient was nontoxic in appearance and in no distress during discussion/exam. Education provided on signs and symptoms to return to ER. Discharge instructions were discussed. Patient to follow-up with primary care physician if symptoms persist or with any concerns. [] Dragon Disclaimer Dragon Disclaimer This electronic medical record was generated, in whole or in part, using a voice recognition dictation system. Departure Departure Impression: Primary Impression: Seasonal allergies Additional Impression: Sinus congestion Disposition: HOME, SELF-CARE Condition: STABLE Referrals: NO PCP (PCP) Patient Instructions: Headache and Allergies, Smoking Cessation Additional Instructions: Drink plenty of fluids. Start taking your daily Claritin again and if symptoms persist follow-up with your primary doctor for re-evaluation and further care. You can try [id number]-[id number] nasal spray such as Flonase and or Afrin as directed on container. Avoid using more than 3 consecutive days. Tylenol and/or ibuprofen as needed for pain and fever control as directed on container. Avoid smoking. Problem Qualifiers HIRAM FALCON APRN February 22, 2019 10:05
== END 2019-02-22 10:23 | disposition home or self-care (01) ==
LOC: ER 09:46
DX: J30.2 Other seasonal allergic rhinitis (principal); G43.909 Migraine, unspecified, not intractable, without status migrainosus; F17.200 Nicotine dependence, unspecified, uncomplicated
CPT/HCPCS: 99281

== ENCOUNTER 2020-07-09 15:05 | Emergency (ER) | payer BC, MEDICAID ==
[~2020-07-09] VITALS: Ht 165.1 cm; Wt 70.0 kg
[~2020-07-09 15:05] MED LIST changes: +MECL-75 PO; -MECL25TA3 PO
[2020-07-09 15:42] LABS: BASO # 0.1 x10^3/uL (0.0-0.2); BASO % 1 % (0-3); EOS # 0.4 x10^3/uL (0.0-0.7); EOS % 3 % (0-3); HEMATOCRIT 43.7 % (36.0-47.0); HEMOGLOBIN 15.2 g/dL (12.0-15.5); LYMPH # 3.2 x10^3/uL (1.0-4.8); LYMPH % 26 % (24-48); MEAN CORPUSCULAR HEMOGLOBIN 34 pg (25-35); MEAN CORPUSCULAR HGB CONC 35 g/dL (31-37); MEAN CORPUSCULAR VOLUME 97 fL (79-100); MONO # 0.7 x10^3/uL (0.0-1.1); MONO % 6 % (0-9); NEUT # 8.2 x10^3/uL (1.8-7.7); NEUT % 65 % (31-73); PLATELET COUNT 321 x10^3/uL (140-400); RED BLOOD COUNT 4.52 x10^6/uL (3.50-5.40); RED CELL DISTRIBUTION WIDTH 13.5 % (11.5-14.5); WHITE BLOOD COUNT 12.7 x10^3/uL (4.0-11.0)
[2020-07-09 15:42] LABS: BARBITURATES NEG (NEG); BENZODIAZEPINES NEG (NEG); CANNABINOIDS POS (NEG); COCAINE POS (NEG); METHADONE NEG (NEG); OPIATES NEG (NEG); PHENCYCLIDINE NEG (NEG)
[2020-07-09 15:43] LABS: AMPHETAMINE/METHAMPHETAMINE POS (NEG)
[2020-07-09 15:59] LABS: CALCIUM 9.3 mg/dL (8.5-10.1); CREATININE 0.9 mg/dL (0.6-1.0); GFR 71.3; POTASSIUM 3.8 mmol/L (3.5-5.1)
[2020-07-09] MEDS ORDERED: PROCHLORPERAZINE 10 MG/2 ML VIAL. IV ONE (16:00)
[2020-07-09] MEDS ORDERED: DEXAMETHASONE SOD PHOS 20 MG/5 ML VIAL. IV ONE (16:00)
[2020-07-09] MEDS ORDERED: diphenhydrAMINE 50 MG/ML VIAL IVP ONE (16:00)
[2020-07-09 16:05] LABS: ALBUMIN 3.6 g/dL (3.4-5.0); ALBUMIN/GLOBULIN RATIO 0.9 (1.0-1.7); TOTAL BILIRUBIN 0.3 mg/dL (0.2-1.0); TOTAL PROTEIN 7.6 g/dL (6.4-8.2)
[2020-07-09 16:22] LABS: PROTHROMBIN TIME PATIENT 11.4 SEC (11.7-14.0)
--- NOTE | 2020-07-09 16:37 | RAD ---
EXAM: Head CT without contrast. HISTORY: Dizziness. TECHNIQUE: Computed tomographic images of the head were obtained without contrast. *One or more of the following individualized dose reduction techniques were utilized for this examination: 1. Automated exposure control. 2. Adjustment of the mA and/or kV according to patient size. 3. Use of iterative reconstruction technique. COMPARISON: None. FINDINGS: There is no acute or subacute extra-axial or intraparenchymal hemorrhage. There is no mass effect or midline shift. There is no hydrocephalus. The pmhl-fhlwx-kvykb matter differential pattern is intact. There are low-lying cerebellar tonsils, previously described on an MRI dated 04/12/2013. There is left greater than right maxillary sinus mucosal thickening and evidence of maxillary antrostomy/uncinectomy surgery. The mastoid air cells are clear. IMPRESSION: 1. No acute intracranial finding. 2. Low lying cerebellar tonsils, better characterized on a prior MRI dated 04/12/2013. 3. Paranasal sinus disease. Electronically signed by: Ana Rosa Melchor MD (07/09/2020 4:34 PM) [id number]
--- NOTE | 2020-07-09 16:46 | PHYS DOC ---
Past Medical History Past Medical History: Anxiety, Asthma, Depression, Migraines Past Surgical History: Tonsillectomy, Tubal ligation, Other Additional Past Surgical Histo: hernia repair Smoking Status: Current Every Day Smoker Alcohol Use: Occasionally Drug Use: Marijuana General Adult EDM: Chief Complaint: DIZZY/LIGHT HEADED HPI: HPI: Patient is a 35 year old Female who presents with 2 days of feeling very stressed with dizziness and frontal head pressure that she rates a 7 out of 10. She states that she is going through a separation and/or divorce and her 's current mistress is causing a lot of problems. She states that she went to the [facility] to try to decompress but she is just so depressed and cannot eat and she is nauseated. She states she does have some blurred vision with some light sensitivity. She does have a history of migraines. She states that she is not on any kind of anxiety or depression medication. She is very tearful. She denies any numbness or tingling, chest pain, shortness of air, abdominal pain, diarrhea, vomiting, fever, cough, syncope, focal weakness. Patient's other history is anxiety, smoker, asthma, depression, migraine, tubal ligation, tonsillectomy. Review of Systems: Review of Systems: Constitutional: Denies fever or chills. [] Eyes: Denies change in visual acuity. Positive for blurred vision and light sensitivity. [] HENT: Denies nasal congestion or sore throat. [] Respiratory: Denies cough or shortness of breath. [] Cardiovascular: Denies chest pain or edema. [] GI: Denies abdominal pain, nausea, vomiting, bloody stools or diarrhea. [] : Denies dysuria. [] Musculoskeletal: Denies back pain or joint pain. [] Integument: Denies rash. [] Neurologic: Positive for headache and dizziness, denies focal weakness or sensory changes. [] Endocrine: Denies polyuria or polydipsia. [] Lymphatic: Denies swollen glands. [] Psychiatric: Positive for depression and anxiety. [] Heart Score: Risk Factors: Risk Factors: DM, Current or recent (<one month) smoker, HTN, HLP, family history of CAD, obesity. Risk Scores: Score 0 - 3: 2.5% MACE over next 6 weeks - Discharge Home Score 4 - 6: 20.3% MACE over next 6 weeks - Admit for Clinical Observation Score 7 - 10: 72.7% MACE over next 6 weeks - Early Invasive Strategies Current Medications: Current Medications Medications (Trade) Dose Ordered Sig/Edilson Start Time Stop Time Status Last Admin Dose Admin Dexamethasone Sodium Phosphate (Decadron) 10 mg 1X ONCE 07/09/20 16:00 07/09/20 16:01 DC Diphenhydramine HCl (Benadryl) 25 mg 1X ONCE 07/09/20 16:00 07/09/20 16:01 DC Prochlorperazine Edisylate (Compazine) 10 mg 1X ONCE 07/09/20 16:00 07/09/20 16:01 DC Allergies: Allergies: Allergies Coded Allergies Type Severity Reaction Last Updated Verified No Known Drug Allergies 01/27/17 No Physical Exam: PE: Constitutional: Well developed, well nourished, no acute distress, non-toxic appearance. [] HENT: Normocephalic, atraumatic, bilateral external ears normal, oropharynx moist, no oral exudates, nose normal. [] Eyes: PERRLA, EOMI, conjunctiva normal, no discharge. [] Neck: Normal range of motion, no tenderness, supple, no stridor. [] Cardiovascular:Heart rate regular rhythm, no murmur [] Lungs & Thorax: Bilateral breath sounds clear to auscultation [] Abdomen: Bowel sounds normal, soft, no tenderness, no masses, no pulsatile masses. [] Skin: Warm, dry, no erythema, no rash. [] Back: No tenderness, no CVA tenderness. [] Extremities: No tenderness, no cyanosis, no clubbing, ROM intact, no edema. [] Neurologic: Alert and oriented X 3, normal motor function, normal sensory function, no focal deficits noted. [] Psychologic: Affect normal, judgement normal, mood normal. Anxious and tearful. [] Current Patient Data: Labs: Laboratory Tests Test 07/09/20 15:10 07/09/20 15:26 07/09/20 15:30 Urine Opiates Screen Neg (NEG) Urine Methadone Screen Neg (NEG) Urine Barbiturates Neg (NEG) Urine Phencyclidine Screen Neg (NEG) Urine Amphetamine/Methamphetamine Pos (NEG) Urine Benzodiazepines Screen Neg (NEG) Urine Cocaine Screen Pos (NEG) Urine Cannabinoids Screen Pos (NEG) Urine Ethyl Alcohol Pos (NEG) POC Urine HCG, Qualitative Hcg negative (Negative) White Blood Count 12.7 x10^3/uL (4.0-11.0) H Red Blood Count 4.52 x10^6/uL (3.50-5.40) Hemoglobin 15.2 g/dL (12.0-15.5) Hematocrit 43.7 % (36.0-47.0) Mean Corpuscular Volume 97 fL (79-100) Mean Corpuscular Hemoglobin 34 pg (25-35) Mean Corpuscular Hemoglobin Concent 35 g/dL (31-37) Red Cell Distribution Width 13.5 % (11.5-14.5) Platelet Count 321 x10^3/uL (140-400) Neutrophils (%) (Auto) 65 % (31-73) Lymphocytes (%) (Auto) 26 % (24-48) Monocytes (%) (Auto) 6 % (0-9) Eosinophils (%) (Auto) 3 % (0-3) Basophils (%) (Auto) 1 % (0-3) Neutrophils # (Auto) 8.2 x10^3/uL (1.8-7.7) H Lymphocytes # (Auto) 3.2 x10^3/uL (1.0-4.8) Monocytes # (Auto) 0.7 x10^3/uL (0.0-1.1) Eosinophils # (Auto) 0.4 x10^3/uL (0.0-0.7) Basophils # (Auto) 0.1 x10^3/uL (0.0-0.2) Prothrombin Time 11.4 SEC (11.7-14.0) L Prothrombin Time INR 0.9 (0.8-1.1) Sodium Level 139 mmol/L (136-145) Potassium Level 3.8 mmol/L (3.5-5.1) Chloride Level 104 mmol/L (98-107) Carbon Dioxide Level 25 mmol/L (21-32) Anion Gap 10 (6-14) Blood Urea Nitrogen 7 mg/dL (7-20) Creatinine 0.9 mg/dL (0.6-1.0) Estimated GFR (Cockcroft-Gault) 71.3 BUN/Creatinine Ratio 8 (6-20) Glucose Level 95 mg/dL (70-99) Calcium Level 9.3 mg/dL (8.5-10.1) Magnesium Level 2.2 mg/dL (1.8-2.4) Total Bilirubin 0.3 mg/dL (0.2-1.0) Aspartate Amino Transferase (AST) 25 U/L (15-37) Alanine Aminotransferase (ALT) 39 U/L (14-59) Alkaline Phosphatase 76 U/L (46-116) Troponin I Quantitative < 0.017 ng/mL (0.000-0.055) Total Protein 7.6 g/dL (6.4-8.2) Albumin 3.6 g/dL (3.4-5.0) Albumin/Globulin Ratio 0.9 (1.0-1.7) L Laboratory Tests 07/09/20 15:30 Laboratory Tests 07/09/20 15:30 Vital Signs: Vital Signs Date Time Temp Pulse Resp B/P (MAP) Pulse Ox O2 Delivery O2 Flow Rate FiO2 07/09/20 15:10 98.1 101 26 128/85 (99) 99 Room Air 98.1 EKG: EK and read by Dr. Bucio as sinus tach and no STEMI. [] Radiology/Procedures: Radiology/Procedures: [] Impression: [facility] [address] [place] [address] IMAGING REPORT Signed PATIENT: JENISE RIVERA LACCOUNT: [id number] : 1985 LOCATION: ER AGE: 35 SEX: F EXAM STATUS: REG ER ORD. PHYSICIAN: PETE AUSTIN APRN REASON: DIZZINESS PROCEDURE: CT HEAD WO CONTRAST EXAM: Head CT without contrast. HISTORY: Dizziness. TECHNIQUE: Computed tomographic images of the head were obtained without contrast. *One or more of the following individualized dose reduction techniques were utilized for this examination: 1. Automated exposure control. 2. Adjustment of the mA and/or kV according to patient size. 3. Use of iterative reconstruction technique. COMPARISON: None. FINDINGS: There is no acute or subacute extra-axial or intraparenchymal hemorrhage. There is no mass effect or midline shift. There is no hydrocephalus. The csne-nwyir-tkqaf matter differential pattern is intact. There are low-lying cerebellar tonsils, previously described on an MRI dated 04/12/2013. There is left greater than right maxillary sinus mucosal thickening and evidence of maxillary antrostomy/uncinectomy surgery. The mastoid air cells are clear. IMPRESSION: 1. No acute intracranial finding. 2. Low lying cerebellar tonsils, better characterized on a prior MRI dated 04/12/2013. 3. Paranasal sinus disease. Electronically signed by: Ana Rosa Munroe MD (07/09/2020 4:34 PM) [id number] DICTATED and SIGNED BY: ANA ROSA MUNROE MD DATE: 07/09/20 1634 Course & Med Decision Making: Course & Med Decision Making Pertinent Labs and Imaging studies reviewed. (See chart for details) See HPI. Patient is ambulatory with a steady gait. Speaks in full clear sentences. Skin pink warm and dry. PERRLA. Moves all extremities normal with equal strengths and bank representative. Alert and oriented x4. Lungs are clear to auscultation all lobes. Patient is positive for amphetamines, cocaine, and marijuana. Patient is given Compazine, Benadryl, Decadron in the ED. Patient states she is feeling better. States her headache is gone. She states her anxiety is better at this time. Patient is educated that she needs to stop using amphetamines, marijuana and cocaine. Patient states that she only smoked amphetamines and cocaine 1 time and she did not like how it made her feel so she has not done it since. She states marijuana she does smoke every day. Patient is given clinic resources so that she can be placed on anxiety and depression medications. She denies suicidal ideation or hallucinations or homicidal ideation. She is alert and oriented x4. She remained stable. She is discharged home. [] Dragon Disclaimer: Dragon Disclaimer: This electronic medical record was generated, in whole or in part, using a voice recognition dictation system. Departure Departure Impression: Primary Impression: Migraine headache Qualified Codes: G43.909 - Migraine, unspecified, not intractable, without status migrainosus Additional Impressions: Anxiety Substance abuse Disposition: 01 HOME, SELF-CARE Condition: STABLE Referrals: DAWSON MARTIN MD (PCP) Patient Instructions: Anxiety and Panic Attacks, [id number], Migraine Headache, Substance Abuse-Brief Additional Instructions: Follow-up at a clinic or with your primary care physician. Stop using drugs as this will make your symptoms of anxiety or depression worse. Drink plenty of fluids. Justicifation of Admission Dx: Justifications for Admission: Justification of Admission Dx: N/A PETE AUSTIN APRN Jul 09, 2020 16:46
[2020-07-09 18:30] VITALS: BP 103/56
[2020-07-09 18:41] LABS: BILIRUBIN,URINE NEGATIVE (NEG); CLARITY,URINE CLEAR; COLOR,URINE YELLOW; NITRITE,URINE NEGATIVE (NEG); PH,URINE 6.5 (<5.0-8.0); PROTEIN,URINE NEGATIVE (NEG-TRACE)
[2020-07-09 18:45] LABS: BACTERIA,URINE FEW /HPF (0-FEW); RBC,URINE OCC /HPF (0-2); SQUAMOUS EPITHELIAL CELL,UR MANY /LPF; WBC,URINE OCC /HPF (0-4)
--- NOTE | 2020-07-10 08:23 | EKG ---
[facility] [address] [place] [address] Test Date: 2020-07-09 Test Time: 15:47:59 Pat Name: JENISE RIVERA Department: Room: Gender: F Chore Worker: : 1985 Requested By: PETE AUSTIN Order Number: [id number] Reading MD: Measurements Intervals [place] Rate: 101 P: 0 DC: 114 QRS: 58 QRSD: 72 T: 28 QT: 334 QTc: 434 Interpretive Statements SINUS TACHYCARDIA OTHERWISE NORMAL ECG RI6.02 No previous ECG available for comparison
== END 2020-07-09 19:16 | disposition home or self-care (01) ==
LOC: ER 15:05
DX: G43.909 Migraine, unspecified, not intractable, without status migrainosus (principal); F41.9 Anxiety disorder, unspecified; F12.10 Cannabis abuse, uncomplicated; F14.10 Cocaine abuse, uncomplicated; F15.10 Other stimulant abuse, uncomplicated; R42 Dizziness and giddiness; F32.9 Major depressive disorder, single episode, unspecified; J45.909 Unspecified asthma, uncomplicated; F17.200 Nicotine dependence, unspecified, uncomplicated
CPT/HCPCS: 36415; 70450; 80053; 80307; 81001; 81025; 83735; 84484; 85025; 85610; 93005; 96374; 96375; 99285; G0480; J0780; J1100; J1200

== ENCOUNTER 2021-12-16 20:02 | Emergency (ER) | payer MEDICAID ==
[~2021-12-16] VITALS: Ht 152.4 cm; Wt 75.0 kg
[~2021-12-16 20:02] MED LIST changes: -CIPR500T PO; +CIPR500T2 PO; +NAPR-699 PO; -NAPR250T6 PO
--- NOTE | 2021-12-16 20:28 | PHYS DOC ---
Past Medical History Past Medical History: Anxiety, Asthma, Depression, Migraines Past Surgical History: Tonsillectomy, Tubal ligation, Other Additional Past Surgical Histo: hernia repair, Smoking Status: Current Every Day Smoker Alcohol Use: Occasionally Drug Use: Marijuana General Adult EDM: Chief Complaint: FLANK PAIN HPI: HPI: Patient is a 36 year old female who presents with approximately 1 month history of right flank pain and right upper quadrant abdominal pain. She reports occasional nausea, no vomiting. She denies constipation or diarrhea. She denies urinary symptoms of any kind. LMP within the last month. Denies vaginal discharge or bleeding. The pain mostly localizes to the right upper quadrant radiates to the right upper flank. She denies any lower abdominal pain or pel meghan pain. She does report that the pain is worse with changes in position and certain movements. She has not yet been able to see her primary care physician for this problem. She denies cough, dyspnea, chest pain. She denies any pleuritic flank pain. She denies rash. She denies fevers or chills. She does report that sometimes the pain does occur postprandially. She does report that she feels hungry currently, wishes to eat. Review of Systems: Review of Systems: Constitutional: Denies fever or chills. [] HENT: Denies nasal congestion or sore throat. [] Respiratory: Denies cough or shortness of breath. [] Cardiovascular: Denies chest pain or edema. [] GI: Right upper quadrant abdominal pain, right flank pain. Nausea, no vomiting, no diarrhea or constipation reported : Denies dysuria, hematuria, urgency or frequency. Denies vaginal discharge or bleeding Musculoskeletal: Right flank pain. Denies midline spine, neck or back pain. Denies joint pain or swelling. Integument: Denies rash. [] Neurologic: Denies headache, focal weakness or sensory changes. [] Endocrine: Denies polyuria or polydipsia. [] Psychiatric: Denies depression or anxiety. [] Heart Score: C/O Chest Pain: No Risk Factors: Risk Factors: DM, Current or recent (<one month) smoker, HTN, HLP, family history of CAD, obesity. Risk Scores: Score 0 - 3: 2.5% MACE over next 6 weeks - Discharge Home Score 4 - 6: 20.3% MACE over next 6 weeks - Admit for Clinical Observation Score 7 - 10: 72.7% MACE over next 6 weeks - Early Invasive Strategies Allergies: Allergies: Allergies Coded Allergies Type Severity Reaction Last Updated Verified No Known Drug Allergies 12/16/21 No Physical Exam: PE: Constitutional: Well developed, well nourished, no acute distress, non-toxic appearance. [] HENT: Normocephalic, atraumatic, no facial edema, erythema or evidence of trauma. Mucous membranes are moist. Eyes: PERRL, EOMI, conjunctiva normal, no discharge. Sclera are clear and anicteric Neck: Normal range of motion, no tenderness, supple, no stridor. [] Cardiovascular:Heart rate regular rhythm, was two radial +2 posterior tibial pulses bilaterally Lungs & Thorax: Bilateral breath sounds clear to auscultation [] Abdomen: Abdomen is soft, nondistended, mild to moderate right upper quadrant tenderness to palpation. Negative Olivares's. No CVA tenderness. No flank abdominal ecchymoses. Mild epigastric tenderness to palpation. No guarding, no rigidity. No lower abdominal tenderness. No abnormal masses organomegaly. No palpable pulsatile mass. Skin: Warm, dry, no erythema, no rash. No jaundice. Back: No tenderness, no CVA tenderness. [] Extremities: No tenderness, no cyanosis, no clubbing, ROM intact, no edema. [] Neurologic: Alert and oriented X 3, normal motor function, normal sensory function, no focal deficits noted. [] Psychologic: Affect normal, judgement normal, mood normal. [] Current Patient Data: Vital Signs: Vital Signs Date Time Temp Pulse Resp B/P (MAP) Pulse Ox O2 Delivery O2 Flow Rate FiO2 12/16/21 20:19 98.0 96 16 168/98 (121) 99 Room Air 98.0 EKG: EKG: [] Radiology/Procedures: Radiology/Procedures: IMAGING REPORT Signed PATIENT: JENISE RIVERA LACCOUNT: [id number] : 1985 LOCATION: ER AGE: 36 SEX: F EXAM STATUS: REG ER ORD. PHYSICIAN: LAURO VIZCAINO DO REASON: RUQ pain PROCEDURE: ABDOMEN LTD EXAM: ULTRASOUND ABDOMEN LIMITED CLINICAL HISTORY: Reason: RUQ pain COMPARISON: None available. TECHNIQUE: Limited ultrasound examination of the right upper quadrant of the abdomen was performed. FINDINGS: Liver contour is normal. Hepatopedal flow noted in the portal vein. Gallbladder is partially distended and appears thin-walled. No pericholecystic fluid or wall thickening. Common bile duct is 3 mm in diameter. Right kidney measures 11.3 cm in long axis. No hydronephrosis. Visualized portions aorta and IVC are unremarkable. IMPRESSION: 1. Normal sonographic appearance the liver. 2. No sonographic evidence for acute cholecystitis. 3. No right-sided hydronephrosis. Electronically signed by: Remy Villeda MD (12/16/2021 10:12 PM) [facility] DICTATED and SIGNED BY: REMY VILLEDA MD DATE: 12/16/[id number] 0 IMAGING REPORT Signed PATIENT: JENISE RIVERA LACCOUNT: [id number] : 1985 LOCATION: ER AGE: 36 SEX: F EXAM STATUS: REG ER ORD. PHYSICIAN: LAURO VIZCAINO DO REASON: right sided abd pain, leukocytosis PROCEDURE: CT ABD PELV W/ IV CONTRST ONLY EXAM: CT ABDOMEN/PELVIS WITH CONTRAST. HISTORY: Right abdominal pain, leukocytosis. TECHNIQUE: Computed tomography of the abdomen and pelvis was performed after the intravenous administration of iodinated contrast. One or more of the following individualized dose reduction techniques were utilized for this examination: 1. Automated exposure control. 2. Adjustment of the mA and/or kV according to patient size. 3. Use of iterative reconstruction technique. COMPARISON: None. FINDINGS: Lung windows through the visualized portions of the bases reveal mild atelectasis. Bone windows reveal no suspicious lesions. The liver, gallbladder, pancreas, adrenal glands, spleen and right kidney are unremarkable. A 1 cm left renal cyst appears benign. There are no pathologically enlarged lymph nodes. A small umbilical hernia contains only fat. Mild wall thickening of the left and transverse colon may reflect luminal decompression or mild colitis. There is no small bowel obstruction. The appendix is not inflamed. IMPRESSION: 1. Correlate to exclude mild colitis. 2. Small umbilical hernia containing only fat. Electronically signed by: Mohamud Enamorado MD (12/16/2021 11:05 PM) [id number] DICTATED and SIGNED BY: ALEJANDRA ENAMORADO MD DATE: 12/16/21 [id number] 0 Course & Med Decision Making: Course & Med Decision Making Pertinent Labs and Imaging studies reviewed. (See chart for details) The patient is given IV fluids, IV morphine, IV Toradol, IV Zofran. She has a nonsurgical abdominal exam. CT and ultrasound imaging did not reveal any obvious source for her pain. CT imaging studies suggest colitis, though does not fit with the patient's clinical presentation or symptoms. I discussed the findings, differential diagnosis and plan of care with her. I told her to follow-up with her primary care physician. She has previously seen gastroenterology, and I told her that she may wish to follow-up with them again, she may require outpatient, nonemergent nuclear medicine study, such as PIPIDA to assess for possible biliary dyskinesia. I did also explain that there may be an underlying musculoskeletal component to her pain. No current indication for further invasive exams, imaging or admission at this time based on current clinical presentation. Strict return precautions are given. She is comfortable with the plan of care. She verbalizes understanding. She is discharged in stable and improved condition. Dragon Disclaimer: Sonal Disclaimer: This electronic medical record was generated, in whole or in part, using a voice recognition dictation system. Departure Departure Impression: Primary Impression: Right sided abdominal pain Additional Impression: Right flank pain Disposition: 01 HOME / SELF CARE / HOMELESS Condition: STABLE Referrals: DAWSON MARTIN MD (PCP) Patient Instructions: Abdominal Pain, Flank Pain Additional Instructions: Use the medication as needed/as directed. Return to the ER for more severe pain, jaundice, which is yellowing of the skin or eyes, if you develop a painful blistered rash on your flank, if you develop uncontrolled vomiting, dehydration, vomiting blood, severe shortness of breath, chest pain or other concerns. Please contact your primary care doctor for follow-up. You may wish to also follow-up with outpatient GI services for a nuclear medicine study to see if her gallbladder is functioning appropriately. Scripts Ondansetron Hcl (ONDANSETRON HCL) 4 Mg Tablet 1 TAB PO PRN Q8HRS PRN for VOMITING, #15 TAB 1 Refill Prov: LAURO VIZCAINO DO 12/16/21 Hydrocodone Bit/Acetaminophen (HYDROCODONE-APAP 5-325 ) 1 Tab Tablet 1 TAB PO PRN Q6HRS PRN for PAIN, #15 TAB 0 Refills Prov: LAURO VIZCAINO DO 12/16/21 LAURO VIZCAINO DO Dec 16, 2021 20:27
[2021-12-16] MEDS ORDERED: IV NORMAL SALINE 1000ML BAG 1,000 ML IV ONE (21:00)
[2021-12-16 21:14] LABS: BASO # 0.1 x10^3/uL (0.0-0.2); BASO % 1 % (0-3); EOS # 0.3 x10^3/uL (0.0-0.7); EOS % 2 % (0-3); HEMATOCRIT 45.4 % (36.0-47.0); HEMOGLOBIN 15.4 g/dL (12.0-15.5); LYMPH # 3.2 x10^3/uL (1.0-4.8); LYMPH % 19 % (24-48); MEAN CORPUSCULAR HEMOGLOBIN 33 pg (25-35); MEAN CORPUSCULAR HGB CONC 34 g/dL (31-37); MEAN CORPUSCULAR VOLUME 97 fL (79-100); MONO % 6 % (0-9); NEUT # 12.6 x10^3/uL (1.8-7.7); NEUT % 73 % (31-73); PLATELET COUNT 291 x10^3/uL (140-400); RED BLOOD COUNT 4.69 x10^6/uL (3.50-5.40); RED CELL DISTRIBUTION WIDTH 13.2 % (11.5-14.5); WHITE BLOOD COUNT 17.3 x10^3/uL (4.0-11.0)
[2021-12-16 21:19] LABS: U PREG PATIENT NEGATIVE (NEG)
[2021-12-16 21:21] LABS: BILIRUBIN,URINE NEGATIVE (NEG); CLARITY,URINE HAZY; COLOR,URINE YELLOW; NITRITE,URINE NEGATIVE (NEG); PROTEIN,URINE NEGATIVE (NEG-TRACE); UROBILINOGEN,URINE 0.2 mg/dL (0.2 mg/dL)
[2021-12-16 21:24] LABS: BACTERIA,URINE MODERATE /HPF (0-FEW)
[2021-12-16 21:25] LABS: RBC,URINE OCC /HPF (0-2)
[2021-12-16 21:27] LABS: CALCIUM 8.9 mg/dL (8.5-10.1); GFR 62.7; POTASSIUM 3.8 mmol/L (3.5-5.1)
[2021-12-16] MEDS ORDERED: KETOROLAC 15 MG/ML VIAL. IVP ONE (21:30)
[2021-12-16] MEDS ORDERED: ONDANSETRON PF 4 MG/2 ML VIAL. IVP ONE (21:30)
[2021-12-16 21:33] LABS: ALBUMIN 4.1 g/dL (3.4-5.0); TOTAL BILIRUBIN 0.4 mg/dL (0.2-1.0); TOTAL PROTEIN 8.3 g/dL (6.4-8.2)
[2021-12-16 21:40] LABS: % EOS 1 % (0-5); % LYMPHS 24 % (24-48); % MONOS 4 % (0-10); % SEGS 71 % (35-66); PLT ESTIMATE ADEQUATE (ADEQUATE)
--- NOTE | 2021-12-16 22:14 | RAD ---
EXAM: ULTRASOUND ABDOMEN LIMITED CLINICAL HISTORY: Reason: RUQ pain COMPARISON: None available. TECHNIQUE: Limited ultrasound examination of the right upper quadrant of the abdomen was performed. FINDINGS: Liver contour is normal. Hepatopedal flow noted in the portal vein. Gallbladder is partially distended and appears thin-walled. No pericholecystic fluid or wall thickeni ng. Common bile duct is 3 mm in diameter. Right kidney measures 11.3 cm in long axis. No hydronephrosis. Visualized portions aorta and IVC are unremarkable. IMPRESSION: 1. Normal sonographic appearance the liver. 2. No sonographic evidence for acute cholecystitis. 3. No right-sided hydronephrosis. Electronically signed by: Remy Draper MD (12/16/2021 10:12 PM) [facility]
[2021-12-16 22:31] VITALS: BP 121/64
[2021-12-16] MEDS ORDERED: CONTRAST GIVEN. MC PRN (22:45)
[2021-12-16] MEDS ORDERED: IOHEXOL 300 MG/ML 100ML VIAL. IV ONE (23:00)
--- NOTE | 2021-12-16 23:08 | RAD ---
EXAM: CT ABDOMEN/PELVIS WITH CONTRAST. HISTORY: Right abdominal pain, leukocytosis. TECHNIQUE: Computed tomography of the abdomen and pelvis was performed after the intravenous administ ration of iodinated contrast. One or more of the following individualized dose reduction techniques w ere utilized for this examination: 1. Automated exposure control. 2. Adjustment of the mA and/or kV according to patient size. 3. Use of iterative reconstruction technique. COMPARISON: None. FINDINGS: Lung windows through the visualized portions of the bases reveal mild atelectasis. Bone win dows reveal no suspicious lesions. The liver, gallbladder, pancreas, adrenal glands, spleen and right kidney are unremarkable. A 1 cm le ft renal cyst appears benign. There are no pathologically enlarged lymph nodes. A small umbilical hernia contains only fat. Mild wall thickening of the left and transverse colon may reflect luminal decompression or mild colitis. There is no small bowel obstruction. The appendix is not inflamed. IMPRESSION: 1. Correlate to exclude mild colitis. 2. Small umbilical hernia containing only fat. Electronically signed by: Mohamud Enamorado MD (12/16/2021 11:05 PM) [id number]
[2021-12-16] MEDS ORDERED: HYDR-2761 PO (23:51)
[2021-12-16] MEDS ORDERED: ONDA-84 PO (23:51)
[2021-12-17] MEDS ORDERED: HYDROcodone/APAP 5/325MG 1 TAB TABLET PO ONE
== END 2021-12-16 23:54 | disposition home or self-care (01) ==
LOC: ER 20:02
DX: R10.11 Right upper quadrant pain (principal); R11.0 Nausea; J45.909 Unspecified asthma, uncomplicated; G43.909 Migraine, unspecified, not intractable, without status migrainosus; F17.200 Nicotine dependence, unspecified, uncomplicated; Z98.51 Tubal ligation status; Z98.890 Other specified postprocedural states
CPT/HCPCS: 36415; 74177; 76705; 80053; 81001; 81025; 83690; 85007; 85025; 87086; 96361; 96374; 96375; 99285; J1885; J2405; J7030; Q9967

== ENCOUNTER → 2022-03-09 | Outpatient (CLI) | payer MEDICAID ==
[~2022-03-09] VITALS: Ht 152.4 cm; Wt 78.9 kg
[~2022-03-09] MED LIST changes: +HYDR-2761 PO; +ONDA-84 PO; +SINCALIDE 1.6 MCG in IV NORMAL SALINE 50ML 30 ML IV ONE
--- NOTE | 2022-03-09 16:40 | RAD ---
EXAMINATION: NM HEPATOBILIARY SCAN W/PHARM Indication: Abdominal pain for 1.5 months TECHNIQUE: After the intravenous administration of 5 mCi of Tc 99m Choletec, imaging over the abdomen was obtained. This was followed by administration of 1.6 mcg sincalide, followed by continued imagin g with ejection fraction measured. FINDINGS: There is homogeneous uptake in the liver with prompt bile duct and gallbladder filling seen . Bowel activity is seen at 20 minutes. Based on further imaging and gallbladder area of interest activity measurements after the administrat ion of sincalide, the gallbladder ejection fraction is estimated at 90% in 30 minutes. IMPRESSION: 1. Normal hepatobiliary uptake and gallbladder filling. 2. Normal gallbladder ejection fraction. Electronically signed by: Diony Etienne MD (03/09/2022 4:38 PM) [id number]
== END ==
LOC: NM 08:03
PROVIDERS: ATTEND Physician Assistant
DX: R10.31 Right lower quadrant pain (principal)
CPT/HCPCS: 78227; A9537; J2805